=== PATIENT | male | born 1990 | race Caucasian/White ===

== ENCOUNTER 2016-06-29 21:58 | Emergency (ER) | payer OTHER, SELFPAY ==
[2016-06-29] MEDS ORDERED: ONDANSETRON 4MG/2ML VIAL (J2405) As Ordered ONE (22:24)
[2016-06-29] MEDS ORDERED: KETOROLAC 30 MG/ML VIAL (J1885) As Ordered ONE (22:24)
[2016-06-29 22:39] LABS: BASO # 0.1 K/mm3 (0.0-0.2); BASO % 0.6 % (0.0-1.0); EOS # 0.1 K/mm3 (0.0-0.50); EOS % 0.6 % (0.0-3.0); LARGE UNSTAINED CELL # 0.3 K/mm3 (0.0-0.4); LARGE UNSTAINED CELL % 2.5 % (0.0-4.0); LYMPH # 1.8 K/mm3 (1.5-6.5); LYMPH % 13.7 % (24.0-44.0); MEAN CORPUSCULAR HEMOGLOBIN 31.4 pg (27.0-33.0); MEAN CORPUSCULAR HGB CONC 35.9 g/dl (32.0-36.5); MEAN CORPUSCULAR VOLUME 87.5 fl (80.0-96.0); MONO # 1.1 K/mm3 (0.0-0.8); MONO % 8.2 % (0.0-5.0); NEUTROPHILS # 9.9 K/mm3 (1.8-7.7); NEUTROPHILS % 74.4 % (36.0-66.0); PLATELET COUNT, AUTOMATED 261 k/mm3 (150-450); WHITE BLOOD COUNT 13.3 K/mm3 (4.0-10.0)
[2016-06-29 23:03] LABS: ALBUMIN 3.8 GM/DL (3.2-5.2); ALKALINE PHOSPHATASE 89 U/L (45-117); ALT/SGPT 20 U/L (12-78); ANION GAP 8 MEQ/L (8-16); AST/SGOT 11 U/L (15-37); BILIRUBIN,DIRECT 0.1 MG/DL (0.0-0.2); BILIRUBIN,TOTAL 0.6 MG/DL (0.2-1.0); BLOOD UREA NITROGEN 9 MG/DL (7-18); CALCIUM LEVEL 8.7 MG/DL (8.5-10.1); CARBON DIOXIDE LEVEL 29 MEQ/L (21-32); CHLORIDE LEVEL 104 MEQ/L (98-107); CREATININE FOR GFR 0.93 MG/DL (0.70-1.30); GLOMERULAR FILTRATION RATE > 60.0 (>60); GLUCOSE, FASTING 106 MG/DL (70-105); POTASSIUM SERUM 3.3 MEQ/L (3.5-5.1); SODIUM LEVEL 141 MEQ/L (136-145); TOTAL PROTEIN 7.6 GM/DL (6.4-8.2)
--- NOTE | 2016-06-29 23:31 | EDDOCDS ---
Physician Documentation [facility] Name: Rishi Navas Age: 26 yrs Sex: Male : 1990 Arrival Date: 06/29/2016 Time: 21:58 Bed 12 Private MD: Chong Pereira Disposition: 06/29/16 23:12 Discharged to Home/Self Care. Impression: Nausea and vomiting, Noninfective gastroenteritis and colitis, unspecified. - Condition is Stable. - Discharge Instructions: Nausea and Vomiting. - Prescriptions for Zofran 4 mg Oral Tablet - take 1 tablet by ORAL route 4 times per day As needed; 10 tablet. - Medication Reconciliation, Local Pharmacy Hours form. - Follow up: Chong Pereira MD; When: 2 - 3 days; Reason: Recheck today's complaints, Continuance of care. - Problem is an ongoing problem. - Symptoms are unchanged. Historical: - Allergies: no known allergies; - Home Meds: 1. none - PMHx: none; - PSHx: none; - Social history: Smoking status: Patient uses tobacco products, current every day smoker. No barriers to communication noted, The patient speaks fluent [place]. - Family history: Not pertinent. - : The pt / caregiver states he / she is not on anticoagulants. Home medication list is obtained from the patient. - Exposure Risk Screening:: None identified. Vital Signs: 06/29 21:59 BP 136 / 81; Pulse 116; Resp 18; Temp 99.6(O); Pulse Ox 99% on R/A; Weight 73.48 kg / lr2 162 lbs (R); Height 5 ft. 8 in. (172.72 cm) (R); Pain 8/10; 23:28 BP 134 / 72; Pulse 80; Resp 18; Temp 98.6(O); Pulse Ox 99% on R/A; Pain 0/10; jmb 21:59 Body Mass Index 24.63 (73.48 kg, 172.72 cm) lr2 MDM: 22:21 NS 0.9% 1000 ml IV at bolus once ordered. ke 22:21 Ondansetron 4 mg IVP once ordered. ke 22:21 ketorolac 30 mg IVP once ordered. ke 22:21 IV Saline Lock ordered. ke 22:21 Undress patient appropriately for examination ordered. ke 22:21 Obtain sample by nasopharyngeal swab ordered. ke 22:22 NOTHING BY MOUTH+DIET ordered. EDMS 22:22 Basic Metabolic Profile Ordered. EDMS 22:22 CBC with Diff Ordered. EDMS 22:22 Liver Profile Ordered. EDMS 22:22 -Influenza A&B Rapid Antigen - Nose Ordered. EDMS 22:56 Financial registration complete. [email or web address] 23:02 [facility] Payment Agreement was scanned into SIM[employer] and attached to record. ks16 23:09 Basic Metabolic Profile Reviewed. ke 23:09 CBC with Diff Reviewed. ke 23:09 Liver Profile Reviewed. ke 23:09 -Influenza A&B Rapid Antigen - Nose Reviewed. ke Administered Medications: 22:28 Drug: NS 0.9% 1000 ml [sodium chloride 0.9 % intravenous solution] Route: IV; Rate: jmb bolus; Site: right antecubital; 22:28 Drug: Ondansetron 4 mg [ondansetron HCl 2 mg/mL intravenous solution (2 mL)] Route: jmb IVP; Site: right antecubital; 22:28 Drug: ketorolac 30 mg [ketorolac 30 mg/mL (1 mL) injection solution (1 mL)] Route: IVP; jmb Site: right antecubital; Signatures: Dispatcher MedHost EDMS Tate Sorto, CUFF MATCHER CUFF MATCHER Anshu Dixon RN RN jmb Smith, Mallory, RN RN ms18 Taryn Brumfield, Reg Reg ks16 The chart was reviewed and I authenticate all verbal orders and agree with the evaluation and treatment provided.Attachments: 23:02 [facility] Payment Agreement [email or web address] MTDD
--- NOTE | 2016-06-29 23:31 | EDDOCDS ---
Nurse's Notes [facility] Name: Rishi Navas Age: 26 yrs Sex: Male : 1990 Arrival Date: 06/29/2016 Time: 21:58 Bed 12 Private MD: Chong Pereira Diagnosis: Nausea and vomiting;Noninfective gastroenteritis and colitis, unspecified Presentation: 06/29 22:03 Presenting complaint: Patient states: that thinks he has a "stomach bug" for a week and ms18 a half, his ears are plugged up, back pain, cough, nausea, SOB. Pt states that he has been taking Nyquil to sleep at night and ibuprofen during the day. Adult Sepsis Screening: The patient does not have new or worsening altered mentation. Patient's respiratory rate is less than 22. Systolic blood pressure is greater than 100. Patient has a qSOFA score of 0- Negative Sepsis Screen. Suicide/Homicide risk assessment- the patient denies having any suicidal and/or homicidal ideations and does not present with any other emotional, behavioral or mental health complaints. Status: Patient is not a community service manager or dependent. Transition of care: patient was not received from another setting of care. 22:03 Method Of Arrival: Walkin/Carried/Asstd ms18 22:06 Acuity: ULI Level 4 ms18 Triage Assessment: 22:05 General: Appears in no apparent distress, ill, uncomfortable, Behavior is appropriate ms18 for age, cooperative. Pain: Location: head and back Pain currently is 8 out of 10 on a pain scale. HIV screening NA for this visit Offered previously. Neurological: Level of Consciousness is awake, alert, obeys commands, Oriented to person, place, time, Gait is steady, Speech is normal. Respiratory: Airway is patent Respiratory effort is even, unlabored, Respiratory pattern is regular, symmetrical, Reports cough that is productive. GI: Abdomen is non- distended. Derm: Skin is pink, warm & dry. normal. Historical: - Allergies: no known allergies; - Home Meds: 1. none - PMHx: none; - PSHx: none; - Social history: Smoking status: Patient uses tobacco products, current every day smoker. No barriers to communication noted, The patient speaks fluent Urdu. - Family history: Not pertinent. - : The pt / caregiver states he / she is not on anticoagulants. Home medication list is obtained from the patient. - Exposure Risk Screening:: None identified. Screenin:11 Screening information is obtained from the patient. Fall risk: No risks identified. jmb Assistance ADL's: requires no assistance with activities of daily living. Abuse/DV Screen: The patient / caregiver reports he/she is: not in a situation that causes fear, pain or injury. Nutritional screening: No deficits noted. home support is adequate. 23:28 Advance Directives: Currently, there is no health care proxy. There is no active DNR jmb order. There is no living will. There is no Power of Electronic Engraver. Assessment: 22:11 General: Appears ill, Behavior is appropriate for age, cooperative. Neurological: Level jmb of Consciousness is awake, alert, obeys commands, Oriented to person, place, time, Speech is normal, Facial symmetry appears normal, Facial symmetry: tongue is midline. Cardiovascular: Capillary refill < 3 seconds Heart tones S1 S2 present Pulses are all present. Rhythm is regular. Respiratory: Airway is patent Respiratory effort is even, unlabored, Respiratory pattern is regular, symmetrical, Breath sounds are clear bilaterally. GI: Abdomen is non- distended Bowel sounds present X 4 quads. Abd is soft and non tender X 4 quads. Derm: Skin is pink, warm & dry. Musculoskeletal: Range of motion intact in all extremities. 22:43 General: Appears in no apparent distress, comfortable, Behavior is appropriate for age, jmb cooperative. Neurological: Level of Consciousness is awake, alert, obeys commands, Oriented to person, place, time. Respiratory: Airway is patent Respiratory effort is even, unlabored, Respiratory pattern is regular, symmetrical. 23:28 General: Patient instructed on discharge instructions. Patient asked if there were any jmb questions regarding discharge, patient stated no. IV discontinue per hospital policy. Patient signed discharge instructions. Patient discharged in stable conditio.. Vital Signs: 21:59 BP 136 / 81; Pulse 116; Resp 18; Temp 99.6(O); Pulse Ox 99% on R/A; Weight 73.48 kg lr2 (R); Height 5 ft. 8 in. (172.72 cm) (R); Pain 8/10; 23:28 BP 134 / 72; Pulse 80; Resp 18; Temp 98.6(O); Pulse Ox 99% on R/A; Pain 0/10; jmb 21:59 Body Mass Index 24.63 (73.48 kg, 172.72 cm) lr2 Vitals: 21:59 Log In Time: June 29, 2016 at 21:58. lr2 ED Course: 21:59 Patient visited by Brittany Reid. lr2 21:59 Patient moved to Waiting lr2 22:00 Chong Pereira MD is Private Physician. lr2 22:00 Patient moved to Pre RCE lr2 22:06 Triage Initiated ms18 22:07 Patient moved to 12 ms18 22:09 Tate Sorto FNP [facility]. ke 22:09 Patient visited by Tate Sorto FNP. ke 22:09 Patient visited by Tate Sorto FNP. ke 22:11 The patient / caregiver is instructed regarding the plan of care and ED course. jmb 22:13 Patient visited by Anshu Singleton RN. [facility] 22:27 -Influenza A&B Rapid Antigen - Nose Sent. jmb 22:27 Basic Metabolic Profile Sent. jmb 22:27 CBC with Diff Sent. jmb 22:27 Liver Profile Sent. jmb 22:28 Inserted saline lock: 20 gauge in right antecubital area and blood collected. The [facility] patient tolerated the procedure well. Labs drawn. (by ED staff). Sent per order to lab. 22:43 Patient visited by Anshu Singleton RN. cesar 23:02 [facility] Payment Agreement was scanned into Sarb[employer] and attached to record. [email or web address] 23:08 Patient visited by Tate Sorto FNP. ke 23:11 Chong Pereira MD is Referral Physician. ke 23:28 Discontinued lock intact, bleeding controlled, pressure dressing applied, No jmb redness/swelling at site. No procedures done that require assistance. Administered Medications: 22:28 Drug: NS 0.9% 1000 ml [sodium chloride 0.9 % intravenous solution] Route: IV; Rate: jmb bolus; Site: right antecubital; :28 Drug: Ondansetron 4 mg [ondansetron HCl 2 mg/mL intravenous solution (2 mL)] Route: jmb IVP; Site: right antecubital; :28 Drug: ketorolac 30 mg [ketorolac 30 mg/mL (1 mL) injection solution (1 mL)] Route: IVP; [facility] Site: right antecubital; Order Results: Lab Order: Basic Metabolic Profile; SPEC06/29/16 22:20 Test: GLUCOSE, FASTING; Value: 106; Range: 70-105; Abnormal: Above high normal; Units: MG/DL; Status: F Test: BLOOD UREA NITROGEN; Value: 9; Range: 7-18; Units: MG/DL; Status: F Test: CREATININE FOR GFR; Value: 0.93; Range: 0.70-1.30; Units: MG/DL; Status: F Test: GLOMERULAR FILTRATION RATE; Value: > 60.0; Range: >60; Status: F Test: SODIUM LEVEL; Value: 141; Range: 136-145; Units: MEQ/L; Status: F Test: POTASSIUM SERUM; Value: 3.3; Range: 3.5-5.1; Abnormal: Below low normal; Units: MEQ/L; Status: F Test: CHLORIDE LEVEL; Value: 104; Range: 98-107; Units: MEQ/L; Status: F Test: CARBON DIOXIDE LEVEL; Value: 29; Range: 21-32; Units: MEQ/L; Status: F Test: ANION GAP; Value: 8; Range: 8-16; Units: MEQ/L; Status: F Test: CALCIUM LEVEL; Value: 8.7; Range: 8.5-10.1; Units: MG/DL; Status: F Test Note: ; Units are mL/min/1.73 m2 Chronic Kidney Disease Staging per NKF: Stage I & II GFR >=60 Normal to Mildly Decreased Stage III GFR 30-59 Moderately Decreased Stage IV GFR 15-29 Severely Decreased Stage V GFR <15 Very Little GFR Left ESRD GFR <15 on CSR TECHNICIAN Lab Order: CBC with Diff; SPEC06/29/16 22:20 Test: WHITE BLOOD COUNT; Value: 13.3; Range: 4.0-10.0; Abnormal: Above high normal; Units: K/mm3; Status: F Test: RED BLOOD COUNT; Value: 5.02; Range: 4.30-6.10; Units: M/mm3; Status: F Test: HEMOGLOBIN; Value: 15.8; Range: 14.0-18.0; Units: g/dl; Status: F Test: HEMATOCRIT; Value: 43.9; Range: 42.0-52.0; Units: %; Status: F Test: MEAN CORPUSCULAR VOLUME; Value: 87.5; Range: 80.0-96.0; Units: fl; Status: F Test: MEAN CORPUSCULAR HEMOGLOBIN; Value: 31.4; Range: 27.0-33.0; Units: pg; Status: F Test: MEAN CORPUSCULAR HGB CONC; Value: 35.9; Range: 32.0-36.5; Units: g/dl; Status: F Test: RED CELL DISTRIBUTION WIDTH; Value: 12.0; Range: 11.5-14.5; Units: %; Status: F Test: PLATELET COUNT, AUTOMATED; Value: 261; Range: 150-450; Units: k/mm3; Status: F Test: NEUTROPHILS %; Value: 74.4; Range: 36.0-66.0; Abnormal: Above high normal; Units: %; Status: F Test: LYMPH %; Value: 13.7; Range: 24.0-44.0; Abnormal: Below low normal; Units: %; Status: F Test: MONO %; Value: 8.2; Range: 0.0-5.0; Abnormal: Above high normal; Units: %; Status: F Test: EOS %; Value: 0.6; Range: 0.0-3.0; Units: %; Status: F Test: BASO %; Value: 0.6; Range: 0.0-1.0; Units: %; Status: F Test: LARGE UNSTAINED CELL %; Value: 2.5; Range: 0.0-4.0; Units: %; Status: F Test: NEUTROPHILS #; Value: 9.9; Range: 1.8-7.7; Abnormal: Above high normal; Units: K/mm3; Status: F Test: LYMPH #; Value: 1.8; Range: 1.5-6.5; Units: K/mm3; Status: F Test: MONO #; Value: 1.1; Range: 0.0-0.8; Abnormal: Above high normal; Units: K/mm3; Status: F Test: EOS #; Value: 0.1; Range: 0.0-0.50; Units: K/mm3; Status: F Test: BASO #; Value: 0.1; Range: 0.0-0.2; Units: K/mm3; Status: F Test: LARGE UNSTAINED CELL #; Value: 0.3; Range: 0.0-0.4; Units: K/mm3; Status: F Lab Order: Liver Profile; SPEC'M 06/29/16 22:20 Test: AST/SGOT; Value: 11; Range: 15-37; Abnormal: Below low normal; Units: U/L; Status: F Test: ALT/SGPT; Value: 20; Range: 12-78; Units: U/L; Status: F Test: ALKALINE PHOSPHATASE; Value: 89; Range: 45-117; Units: U/L; Status: F Test: BILIRUBIN,TOTAL; Value: 0.6; Range: 0.2-1.0; Units: MG/DL; Status: F Test: BILIRUBIN,DIRECT; Value: 0.1; Range: 0.0-0.2; Units: MG/DL; Status: F Test: TOTAL PROTEIN; Value: 7.6; Range: 6.4-8.2; Units: GM/DL; Status: F Test: ALBUMIN; Value: 3.8; Range: 3.2-5.2; Units: GM/DL; Status: F Test: ALBUMIN/GLOBULIN RATIO; Value: 1.00; Range: 1.00-1.93; Status: F Lab Order: -Influenza A&B Rapid Antigen - Nose; SPEC'M 06/29/16 22:09 Test: INFLUENZA A RAPID SCR by ICA; Value: INFLUENZA A RESULTS NEGATIVE; Status: F Test: INFLUENZA A RAPID SCR by ICA; Value: Comments:; Status: F Test: INFLUENZA B RAPID SCR by ICA; Value: INFLUENZA B RESULTS NEGATIVE; Status: F Test Note: ; The Influenza test is a direct rapid immunoassay for the qualitative detection of Influenza viral antigen. Cell culture (Viral Culture) testing should be considered to confirm NEGATIVE results and to assist in detecting other viruses that can provide similar clinical symptoms. Please contact the lab within 24 hours ([phone]) if confirmatory testing is desired. Outcome: 23:12 Discharge ordered by Provider. 23:28 Discharge Assessment: Patient awake, alert and oriented x 3. No cognitive and/or jmb functional deficits noted. Patient verbalized understanding of disposition instructions. Patient awake and alert. obeys commands, Oriented to person, place and time. Patient verbalized understanding of disposition instructions. Patient has no functional deficits. patient administered narcotics - no. The following High Risk Discharge criteria are identified: None. Discharged to home ambulatory, with significant other. Condition: stable Condition: improved. Discharge instructions given to patient, Instructed on discharge instructions, follow up and referral plans. medication usage, Demonstrated understanding of instructions, medications, Pt was receptive of discharge instructions/ teaching. Prescriptions given X 1. No special radiology studies were completed. Property sent home with patient. 23:31 Patient left the ED. b Signatures: Tate Sorto, Anshu Vera RN RN Laura Martinez RN RN [id number] Taryn Brumfield, Reg Reg [email or web address] Brittany Reid lr2 SEGUN
--- NOTE | 2016-07-02 00:32 | EDDOCDS ---
Physician Documentation [facility] Name: Rishi Navas Age: 26 yrs Sex: Male : 1990 Arrival Date: 06/29/2016 Time: 21:58 Bed 12 Private MD: Chong Pereira Disposition: 06/29/16 23:12 Discharged to Home/Self Care. Impression: Nausea and vomiting, Noninfective gastroenteritis and colitis, unspecified. - Condition is Stable. - Discharge Instructions: Nausea and Vomiting. - Prescriptions for Zofran 4 mg Oral Tablet - take 1 tablet by ORAL route 4 times per day As needed; 10 tablet. - Medication Reconciliation, Local Pharmacy Hours form. - Follow up: Chong Pereira MD; When: 2 - 3 days; Reason: Recheck today's complaints, Continuance of care. - Problem is an ongoing problem. - Symptoms are unchanged. Historical: - Allergies: no known allergies; - Home Meds: 1. none - PMHx: none; - PSHx: none; - Social history: Smoking status: Patient uses tobacco products, current every day smoker. No barriers to communication noted, The patient speaks fluent Latvian. - Family history: Not pertinent. - : The pt / caregiver states he / she is not on anticoagulants. Home medication list is obtained from the patient. - Exposure Risk Screening:: None identified. Vital Signs: 06/29 21:59 BP 136 / 81; Pulse 116; Resp 18; Temp 99.6(O); Pulse Ox 99% on R/A; Weight 73.48 kg / lr2 162 lbs (R); Height 5 ft. 8 in. (172.72 cm) (R); Pain 8/10; 23:28 BP 134 / 72; Pulse 80; Resp 18; Temp 98.6(O); Pulse Ox 99% on R/A; Pain 0/10; jmb 21:59 Body Mass Index 24.63 (73.48 kg, 172.72 cm) lr2 MDM: 22:21 NS 0.9% 1000 ml IV at bolus once ordered. ke 22:21 Ondansetron 4 mg IVP once ordered. ke 22:21 ketorolac 30 mg IVP once ordered. ke 22:21 IV Saline Lock ordered. ke 22:21 Undress patient appropriately for examination ordered. ke 22:21 Obtain sample by nasopharyngeal swab ordered. ke 22:22 NOTHING BY MOUTH+DIET ordered. EDMS 22:22 Basic Metabolic Profile Ordered. EDMS 22:22 CBC with Diff Ordered. EDMS 22:22 Liver Profile Ordered. EDMS 22:22 -Influenza A&B Rapid Antigen - Nose Ordered. EDMS 22:56 Financial registration complete. [email or web address] 23:02 [facility] Payment Agreement was scanned into [employer] and attached to record. [email or web address] 23:09 Basic Metabolic Profile Reviewed. ke 23:09 CBC with Diff Reviewed. ke 23:09 Liver Profile Reviewed. ke 23:09 -Influenza A&B Rapid Antigen - Nose Reviewed. 06/30 09:41 T-Sheet-- Draft Copy was scanned into Source [employer] and attached to record. [facility] Administered Medications: 06/29 22:28 Drug: NS 0.9% 1000 ml [sodium chloride 0.9 % intravenous solution] Route: IV; Rate: jmb bolus; Site: right antecubital; 22:28 Drug: Ondansetron 4 mg [ondansetron HCl 2 mg/mL intravenous solution (2 mL)] Route: jmb IVP; Site: right antecubital; 22:28 Drug: ketorolac 30 mg [ketorolac 30 mg/mL (1 mL) injection solution (1 mL)] Route: IVP; jmb Site: right antecubital; Signatures: Dispatcher MedHost EDTate Boone, ZANJERO ZANJERO Anshu Dixon RN RN jmb Smith, Mallory, RN RN msTaryn Vernon, Reg Reg ks16 Helga Deras [facility] The chart was reviewed and I authenticate all verbal orders and agree with the evaluation and treatment provided.Attachments: : [facility] Payment Agreement 06/30 09:41 T-Sheet-- Draft Copy [facility] Chart Complete MTDD
--- NOTE | 2016-07-02 00:32 | EDDOCDS ---
Nurse's Notes [facility] Name: Rishi Navas Age: 26 yrs Sex: Male : 1990 Arrival Date: 06/29/2016 Time: 21:58 Bed 12 Private MD: Chong Pereira Diagnosis: Nausea and vomiting;Noninfective gastroenteritis and colitis, unspecified Presentation: 06/29 22:03 Presenting complaint: Patient states: that thinks he has a "stomach bug" for a week and ms18 a half, his ears are plugged up, back pain, cough, nausea, SOB. Pt states that he has been taking Nyquil to sleep at night and ibuprofen during the day. Adult Sepsis Screening: The patient does not have new or worsening altered mentation. Patient's respiratory rate is less than 22. Systolic blood pressure is greater than 100. Patient has a qSOFA score of 0- Negative Sepsis Screen. Suicide/Homicide risk assessment- the patient denies having any suicidal and/or homicidal ideations and does not present with any other emotional, behavioral or mental health complaints. Status: Patient is not a technical services representative or dependent. Transition of care: patient was not received from another setting of care. 22:03 Method Of Arrival: Walkin/Carried/Asstd ms18 22:06 Acuity: ULI Level 4 ms18 Triage Assessment: 22:05 General: Appears in no apparent distress, ill, uncomfortable, Behavior is appropriate ms18 for age, cooperative. Pain: Location: head and back Pain currently is 8 out of 10 on a pain scale. HIV screening NA for this visit Offered previously. Neurological: Level of Consciousness is awake, alert, obeys commands, Oriented to person, place, time, Gait is steady, Speech is normal. Respiratory: Airway is patent Respiratory effort is even, unlabored, Respiratory pattern is regular, symmetrical, Reports cough that is productive. GI: Abdomen is non- distended. Derm: Skin is pink, warm & dry. normal. Historical: - Allergies: no known allergies; - Home Meds: 1. none - PMHx: none; - PSHx: none; - Social history: Smoking status: Patient uses tobacco products, current every day smoker. No barriers to communication noted, The patient speaks fluent Georgian. - Family history: Not pertinent. - : The pt / caregiver states he / she is not on anticoagulants. Home medication list is obtained from the patient. - Exposure Risk Screening:: None identified. Screenin:11 Screening information is obtained from the patient. Fall risk: No risks identified. jmb Assistance ADL's: requires no assistance with activities of daily living. Abuse/DV Screen: The patient / caregiver reports he/she is: not in a situation that causes fear, pain or injury. Nutritional screening: No deficits noted. home support is adequate. 23:28 Advance Directives: Currently, there is no health care proxy. There is no active DNR jmb order. There is no living will. There is no Power of Rope Maker. Assessment: 22:11 General: Appears ill, Behavior is appropriate for age, cooperative. Neurological: Level jmb of Consciousness is awake, alert, obeys commands, Oriented to person, place, time, Speech is normal, Facial symmetry appears normal, Facial symmetry: tongue is midline. Cardiovascular: Capillary refill < 3 seconds Heart tones S1 S2 present Pulses are all present. Rhythm is regular. Respiratory: Airway is patent Respiratory effort is even, unlabored, Respiratory pattern is regular, symmetrical, Breath sounds are clear bilaterally. GI: Abdomen is non- distended Bowel sounds present X 4 quads. Abd is soft and non tender X 4 quads. Derm: Skin is pink, warm & dry. Musculoskeletal: Range of motion intact in all extremities. 22:43 General: Appears in no apparent distress, comfortable, Behavior is appropriate for age, jmb cooperative. Neurological: Level of Consciousness is awake, alert, obeys commands, Oriented to person, place, time. Respiratory: Airway is patent Respiratory effort is even, unlabored, Respiratory pattern is regular, symmetrical. 23:28 General: Patient instructed on discharge instructions. Patient asked if there were any jmb questions regarding discharge, patient stated no. IV discontinue per hospital policy. Patient signed discharge instructions. Patient discharged in stable conditio.. Vital Signs: 21:59 BP 136 / 81; Pulse 116; Resp 18; Temp 99.6(O); Pulse Ox 99% on R/A; Weight 73.48 kg lr2 (R); Height 5 ft. 8 in. (172.72 cm) (R); Pain 8/10; 23:28 BP 134 / 72; Pulse 80; Resp 18; Temp 98.6(O); Pulse Ox 99% on R/A; Pain 0/10; jmb 21:59 Body Mass Index 24.63 (73.48 kg, 172.72 cm) lr2 Vitals: 21:59 Log In Time: June 29, 2016 at 21:58. lr2 ED Course: 21:59 Patient visited by Brittany Reid. lr2 21:59 Patient moved to Waiting lr2 22:00 Chong Pereira MD is Private Physician. lr2 22:00 Patient moved to Pre RCE lr2 22:06 Triage Initiated ms18 22:07 Patient moved to 12 ms18 22:09 Tate Sorto FNP is [facility]. ke 22:09 Patient visited by Tate Sorto FNP. ke 22:09 Patient visited by Tate Sorto FNP. ke 22:11 The patient / caregiver is instructed regarding the plan of care and ED course. jmb 22:13 Patient visited by Anshu Singleton RN. [facility] 22:27 -Influenza A&B Rapid Antigen - Nose Sent. jmb 22:27 Basic Metabolic Profile Sent. jmb 22:27 CBC with Diff Sent. jmb 22:27 Liver Profile Sent. anab 22:28 Inserted saline lock: 20 gauge in right antecubital area and blood collected. The [facility] patient tolerated the procedure well. Labs drawn. (by ED staff). Sent per order to lab. 22:43 Patient visited by Anshu Singleton RN. cely 23:02 [facility] Payment Agreement was scanned into [employer] and attached to record. ks16 23:08 Patient visited by Tate Sorto FNP. ke 23:11 Chong Pereira MD is Referral Physician. ke 23:28 Discontinued lock intact, bleeding controlled, pressure dressing applied, No jmb redness/swelling at site. No procedures done that require assistance. 06/30 09:41 T-Sheet-- Draft Copy was scanned into [employer] and attached to record. [facility] Administered Medications: 06/29 22:28 Drug: NS 0.9% 1000 ml [sodium chloride 0.9 % intravenous solution] Route: IV; Rate: jmb bolus; Site: right antecubital; 22:28 Drug: Ondansetron 4 mg [ondansetron HCl 2 mg/mL intravenous solution (2 mL)] Route: jmb IVP; Site: right antecubital; 22:28 Drug: ketorolac 30 mg [ketorolac 30 mg/mL (1 mL) injection solution (1 mL)] Route: IVP; [facility] Site: right antecubital; Order Results: Lab Order: Basic Metabolic Profile; SPEC'M 06/29/16 22:20 Test: GLUCOSE, FASTING; Value: 106; Range: 70-105; Abnormal: Above high normal; Units: MG/DL; Status: F Test: BLOOD UREA NITROGEN; Value: 9; Range: 7-18; Units: MG/DL; Status: F Test: CREATININE FOR GFR; Value: 0.93; Range: 0.70-1.30; Units: MG/DL; Status: F Test: GLOMERULAR FILTRATION RATE; Value: > 60.0; Range: >60; Status: F Test: SODIUM LEVEL; Value: 141; Range: 136-145; Units: MEQ/L; Status: F Test: POTASSIUM SERUM; Value: 3.3; Range: 3.5-5.1; Abnormal: Below low normal; Units: MEQ/L; Status: F Test: CHLORIDE LEVEL; Value: 104; Range: 98-107; Units: MEQ/L; Status: F Test: CARBON DIOXIDE LEVEL; Value: 29; Range: 21-32; Units: MEQ/L; Status: F Test: ANION GAP; Value: 8; Range: 8-16; Units: MEQ/L; Status: F Test: CALCIUM LEVEL; Value: 8.7; Range: 8.5-10.1; Units: MG/DL; Status: F Test Note: ; Units are mL/min/1.73 m2 Chronic Kidney Disease Staging per NKF: Stage I & II GFR >=60 Normal to Mildly Decreased Stage III GFR 30-59 Moderately Decreased Stage IV GFR 15-29 Severely Decreased Stage V GFR <15 Very Little GFR Left ESRD GFR <15 on ETHANOL QUALITY LEADER Lab Order: CBC with Diff; SPEC'M 06/29/16 22:20 Test: WHITE BLOOD COUNT; Value: 13.3; Range: 4.0-10.0; Abnormal: Above high normal; Units: K/mm3; Status: F Test: RED BLOOD COUNT; Value: 5.02; Range: 4.30-6.10; Units: M/mm3; Status: F Test: HEMOGLOBIN; Value: 15.8; Range: 14.0-18.0; Units: g/dl; Status: F Test: HEMATOCRIT; Value: 43.9; Range: 42.0-52.0; Units: %; Status: F Test: MEAN CORPUSCULAR VOLUME; Value: 87.5; Range: 80.0-96.0; Units: fl; Status: F Test: MEAN CORPUSCULAR HEMOGLOBIN; Value: 31.4; Range: 27.0-33.0; Units: pg; Status: F Test: MEAN CORPUSCULAR HGB CONC; Value: 35.9; Range: 32.0-36.5; Units: g/dl; Status: F Test: RED CELL DISTRIBUTION WIDTH; Value: 12.0; Range: 11.5-14.5; Units: %; Status: F Test: PLATELET COUNT, AUTOMATED; Value: 261; Range: 150-450; Units: k/mm3; Status: F Test: NEUTROPHILS %; Value: 74.4; Range: 36.0-66.0; Abnormal: Above high normal; Units: %; Status: F Test: LYMPH %; Value: 13.7; Range: 24.0-44.0; Abnormal: Below low normal; Units: %; Status: F Test: MONO %; Value: 8.2; Range: 0.0-5.0; Abnormal: Above high normal; Units: %; Status: F Test: EOS %; Value: 0.6; Range: 0.0-3.0; Units: %; Status: F Test: BASO %; Value: 0.6; Range: 0.0-1.0; Units: %; Status: F Test: LARGE UNSTAINED CELL %; Value: 2.5; Range: 0.0-4.0; Units: %; Status: F Test: NEUTROPHILS #; Value: 9.9; Range: 1.8-7.7; Abnormal: Above high normal; Units: K/mm3; Status: F Test: LYMPH #; Value: 1.8; Range: 1.5-6.5; Units: K/mm3; Status: F Test: MONO #; Value: 1.1; Range: 0.0-0.8; Abnormal: Above high normal; Units: K/mm3; Status: F Test: EOS #; Value: 0.1; Range: 0.0-0.50; Units: K/mm3; Status: F Test: BASO #; Value: 0.1; Range: 0.0-0.2; Units: K/mm3; Status: F Test: LARGE UNSTAINED CELL #; Value: 0.3; Range: 0.0-0.4; Units: K/mm3; Status: F Lab Order: Liver Profile; SPEC'M 06/29/16 22:20 Test: AST/SGOT; Value: 11; Range: 15-37; Abnormal: Below low normal; Units: U/L; Status: F Test: ALT/SGPT; Value: 20; Range: 12-78; Units: U/L; Status: F Test: ALKALINE PHOSPHATASE; Value: 89; Range: 45-117; Units: U/L; Status: F Test: BILIRUBIN,TOTAL; Value: 0.6; Range: 0.2-1.0; Units: MG/DL; Status: F Test: BILIRUBIN,DIRECT; Value: 0.1; Range: 0.0-0.2; Units: MG/DL; Status: F Test: TOTAL PROTEIN; Value: 7.6; Range: 6.4-8.2; Units: GM/DL; Status: F Test: ALBUMIN; Value: 3.8; Range: 3.2-5.2; Units: GM/DL; Status: F Test: ALBUMIN/GLOBULIN RATIO; Value: 1.00; Range: 1.00-1.93; Status: F Lab Order: -Influenza A&B Rapid Antigen - Nose; SPEC'M 06/29/16 22:09 Test: INFLUENZA A RAPID SCR by ICA; Value: INFLUENZA A RESULTS NEGATIVE; Status: F Test: INFLUENZA A RAPID SCR by ICA; Value: Comments:; Status: F Test: INFLUENZA B RAPID SCR by ICA; Value: INFLUENZA B RESULTS NEGATIVE; Status: F Test Note: ; The Influenza test is a direct rapid immunoassay for the qualitative detection of Influenza viral antigen. Cell culture (Viral Culture) testing should be considered to confirm NEGATIVE results and to assist in detecting other viruses that can provide similar clinical symptoms. Please contact the lab within 24 hours ([phone]) if confirmatory testing is desired. Outcome: 23:12 Discharge ordered by Provider. justin 23:28 Discharge Assessment: Patient awake, alert and oriented x 3. No cognitive and/or jmb functional deficits noted. Patient verbalized understanding of disposition instructions. Patient awake and alert. obeys commands, Oriented to person, place and time. Patient verbalized understanding of disposition instructions. Patient has no functional deficits. patient administered narcotics - no. The following High Risk Discharge criteria are identified: None. Discharged to home ambulatory, with significant other. Condition: stable Condition: improved. Discharge instructions given to patient, Instructed on discharge instructions, follow up and referral plans. medication usage, Demonstrated understanding of instructions, medications, Pt was receptive of discharge instructions/ teaching. Prescriptions given X 1. No special radiology studies were completed. Property sent home with patient. 23:31 Patient left the ED. jmb Signatures: Tate Sorto, CEMENT DESPATCH OPERATOR CEMENT DESPATCH OPERATOR Anshu Dixon RN RN jmb Smith, Mallory,LOLITA RN msTaryn Vernon, Reg Reg wy16 [place], Helga Reid, Brittany carney Chart Complete MTDD
--- NOTE | 2016-07-02 00:32 | EDDOCDS ---
Physician Documentation [facility] Name: Rishi Navas Age: 26 yrs Sex: Male : 1990 Arrival Date: 06/29/2016 Time: 21:58 Bed 12 Private MD: Chong Pereira Disposition: 06/29/16 23:12 Discharged to Home/Self Care. Impression: Nausea and vomiting, Noninfective gastroenteritis and colitis, unspecified. - Condition is Stable. - Discharge Instructions: Nausea and Vomiting. - Prescriptions for Zofran 4 mg Oral Tablet - take 1 tablet by ORAL route 4 times per day As needed; 10 tablet. - Medication Reconciliation, Local Pharmacy Hours form. - Follow up: Chong Pereira MD; When: 2 - 3 days; Reason: Recheck today's complaints, Continuance of care. - Problem is an ongoing problem. - Symptoms are unchanged. Historical: - Allergies: no known allergies; - Home Meds: 1. none - PMHx: none; - PSHx: none; - Social history: Smoking status: Patient uses tobacco products, current every day smoker. No barriers to communication noted, The patient speaks fluent Slovenian. - Family history: Not pertinent. - : The pt / caregiver states he / she is not on anticoagulants. Home medication list is obtained from the patient. - Exposure Risk Screening:: None identified. Vital Signs: 06/29 21:59 BP 136 / 81; Pulse 116; Resp 18; Temp 99.6(O); Pulse Ox 99% on R/A; Weight 73.48 kg / lr2 162 lbs (R); Height 5 ft. 8 in. (172.72 cm) (R); Pain 8/10; 23:28 BP 134 / 72; Pulse 80; Resp 18; Temp 98.6(O); Pulse Ox 99% on R/A; Pain 0/10; jmb 21:59 Body Mass Index 24.63 (73.48 kg, 172.72 cm) lr2 MDM: 22:21 NS 0.9% 1000 ml IV at bolus once ordered. ke 22:21 Ondansetron 4 mg IVP once ordered. ke 22:21 ketorolac 30 mg IVP once ordered. ke 22:21 IV Saline Lock ordered. ke 22:21 Undress patient appropriately for examination ordered. ke 22:21 Obtain sample by nasopharyngeal swab ordered. ke 22:22 NOTHING BY MOUTH+DIET ordered. EDMS 22:22 Basic Metabolic Profile Ordered. EDMS 22:22 CBC with Diff Ordered. EDMS 22:22 Liver Profile Ordered. EDMS 22:22 -Influenza A&B Rapid Antigen - Nose Ordered. EDMS 22:56 Financial registration complete. ks16 23:02 [facility] Payment Agreement was scanned into [employer] and attached to record. ks16 23:09 Basic Metabolic Profile Reviewed. ke 23:09 CBC with Diff Reviewed. ke 23:09 Liver Profile Reviewed. ke 23:09 -Influenza A&B Rapid Antigen - Nose Reviewed. 06/30 09:41 T-Sheet-- Draft Copy was scanned into [employer] and attached to record. [facility] Administered Medications: 06/29 22:28 Drug: NS 0.9% 1000 ml [sodium chloride 0.9 % intravenous solution] Route: IV; Rate: jmb bolus; Site: right antecubital; 22:28 Drug: Ondansetron 4 mg [ondansetron HCl 2 mg/mL intravenous solution (2 mL)] Route: jmb IVP; Site: right antecubital; 22:28 Drug: ketorolac 30 mg [ketorolac 30 mg/mL (1 mL) injection solution (1 mL)] Route: IVP; jmb Site: right antecubital; Signatures: Dispatcher [employer] EDTate Boone, APPAREL MANUFACTURE INSTRUCTOR APPAREL MANUFACTURE INSTRUCTOR Anshu Dixon RN RN jmb Smith, Mallory, RN RN msTaryn Vernon, Reg Reg ks16 Helga Deras [facility] The chart was reviewed and I authenticate all verbal orders and agree with the evaluation and treatment provided.Attachments: : [facility] Payment Agreement 06/30 09:41 T-Sheet-- Draft Copy [facility] Chart Complete MTDD
== END 2016-06-29 23:31 | disposition home or self-care (01) ==
LOC: M ED 21:58
DX: K29.70 Gastritis, unspecified, without bleeding (principal); Z72.0 Tobacco use
CPT/HCPCS: 36415; 80048; 80076; 85025; 87804; 96374; 96375; 99284; J1885; J2405

== ENCOUNTER 2018-01-15 10:34 | Emergency (ER) | payer MEDICAID, SELFPAY ==
[2018-01-15] MEDS: TETRACAINE 0.5% OPHTH SOLN 4ML OS (10:54)
== END 2018-01-15 11:34 | disposition home or self-care (01) ==
LOC: M ED 10:34
DX: S05.02XA Injury of conjunctiva and corneal abrasion without foreign body, left eye, initial encounter (principal); W22.8XXA Striking against or struck by other objects, initial encounter; Y92.89 Other specified places as the place of occurrence of the external cause; Z91.030 Bee allergy status; F17.210 Nicotine dependence, cigarettes, uncomplicated
CPT/HCPCS: 99283

== ENCOUNTER → 2018-06-02 | Outpatient (CLI) | payer OTHER ==
[~2018-06-02] MED LIST: ERYTOIN8 OP; IBUP-1022 PO
--- NOTE | 2018-06-02 13:07 | REP ---
Clinical: Trauma. Contusion. Technique: AP, lateral, bilateral oblique and sunrise views left knee . Findings: The osseous structures and joint spaces are intact and normal. There is no evidence for acute fracture or dislocation. No joint effusion is appreciated. Surrounding soft tissues are unremarkable. No subcutaneous emphysema or radiodense foreign body. Impression: Normal examination. No acute fracture or dislocation. Electronically Signed by Hardik Lane MD 06/02/2018 12:59 P
== END ==
LOC: M WUC 12:20
PROVIDERS: ATTEND Physician Assistant
DX: S80.02XA Contusion of left knee, initial encounter (principal); Y92.89 Other specified places as the place of occurrence of the external cause; Y93.89 Activity, other specified; X58.XXXA Exposure to other specified factors, initial encounter; Y99.8 Other external cause status

== ENCOUNTER → 2024-12-02 | Outpatient (CLI) | payer OTHER ==
[2024-12-02 12:42] LABS: BASO # 0.0 10^3/uL (0.0-0.2); BASO % 0.5 % (0.0-1.0); EOS # 0.1 10^3/uL (0.0-0.5); EOS % 1.8 % (0.0-3.0); LYMPH # 2.1 10^3/uL (1.5-5.0); LYMPH % 35.9 % (24.0-44.0); MONO # 0.5 10^3/uL (0.0-0.8); MONO % 8.9 % (2.0-8.0); NEUTROPHILS # 3.1 10^3/uL (1.5-8.5); NEUTROPHILS % 52.6 % (36.0-66.0); PLATELET COUNT, AUTOMATED 280 10^3/uL (150-450)
[2024-12-02 12:49] LABS: ALT/SGPT 39 U/L (7.0-40); AST/SGOT 20 U/L (<34); CALCIUM LEVEL 9.8 MG/DL (8.5-10.1); CARBON DIOXIDE LEVEL 27 MMOL/L (20-31); CHLORIDE LEVEL 105 MMOL/L (98-107); CHOLESTEROL LEVEL 220 MG/DL (<200); CHOLESTEROL RISK RATIO 6.04 (<5); CREATININE FOR GFR 1.04 MG/DL (0.70-1.30); GLOMERULAR FILTRATION RATE > 90.0 (>60); LDL CHOLESTEROL 139.6 MG/DL (<100); NON-HDL-C 183.6 MG/DL; POTASSIUM SERUM 4.3 MMOL/L (3.5-5.1); SODIUM LEVEL 144 MMOL/L (136-145); TRIGLYCERIDES LEVEL 220 MG/DL (<150)
== END ==
LOC: M WUC 09:42
PROVIDERS: ATTEND Student in an Organized Health Care Education/Training Program
DX: Z00.00 Encounter for general adult medical examination without abnormal findings (principal)